=== PATIENT | female | born 1995 | race Hispanic/Latino ===

== ENCOUNTER 2020-01-05 18:52 | Emergency (ER) | payer BC ==
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
[2020-01-05] MEDS ORDERED: Ketorolac Tromethamine 30 MG/ML VIAL ONE (19:48)
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
== END 2020-01-05 20:21 | disposition home or self-care (01) ==
LOC: ERS 18:52
DX: S40.022A Contusion of left upper arm, initial encounter (principal); V49.9XXA Car occupant (driver) (passenger) injured in unspecified traffic accident, initial encounter
CPT/HCPCS: 71045; 96372; J1885